=== PATIENT | male | born 1925 | race Caucasian/White ===

== ENCOUNTER 2017-08-08 | Emergency (ER) | payer OTHER ==
--- NOTE | 2017-08-08 22:24 | EDPHYS ---
Physician Documentation [facility] Name: Camilo Rocha Age: 89 yrs Sex: Male : 1925 Arrival Date: 08/08/2017 Time: 21:06 Bed 28 Private MD: ED Physician Chris Frankel HPI: 08/08 22:15 This 89 yrs old Male presents to ER via Wheelchair with complaints of CLOGGED jr8 EAR. 22:15 The patient presents with a fullness, hearing loss. The complaints affect the right jr8 ear. Onset: The symptoms/episode began/occurred gradually, 2 week(s) ago. Modifying factors: The symptoms are alleviated by nothing, the symptoms are aggravated by nothing. Associated signs and symptoms: The patient has no apparent associated signs or symptoms. Severity of symptoms: At their worst the symptoms were moderate in the emergency department the symptoms are unchanged. The patient has not experienced similar symptoms in the past. The patient has not recently seen a physician. Historical: - Allergies: 21:08 Tetanus Vaccines \T\ Toxoid; la1 - PMHx: 21:08 Atrial Fib; colon cancer; GERD; Hypertension; COPD; la1 - Immunization history:: Adult Immunizations up to date. - Social history:: Smoking status: Patient uses tobacco products, smokes one pack cigarettes per day. ROS: 22:15 Eyes: Negative for injury, pain, redness, and discharge, Neck: Negative for injury, jr8 pain, and swelling, Cardiovascular: Negative for chest pain, palpitations, and edema, Respiratory: Negative for shortness of breath, cough, wheezing, and pleuritic chest pain, Abdomen/GI: Negative for abdominal pain, nausea, vomiting, diarrhea, and constipation, Back: Negative for injury and pain, MS/Extremity: Negative for injury and deformity, Skin: Negative for injury, rash, and discoloration, Neuro: Negative for headache, weakness, numbness, tingling, and seizure. 22:15 ENT: Positive for ear pain, hearing loss, Negative for drainage from ear(s), tinnitus, nasal discharge, rhinorrhea, sinus congestion, sinus pain, sore throat, dental pain, difficulty swallowing, difficulty handling secretions, hoarseness. Exam: 22:15 Eyes: Pupils equal round and reactive to light, extra-ocular motions intact. Lids and jr8 lashes normal. Conjunctiva and sclera are non-icteric and not injected. Cornea within normal limits. Periorbital areas with no swelling, redness, or edema. Neck: Trachea midline, no thyromegaly or masses palpated, and no cervical lymphadenopathy. Supple, full range of motion without nuchal rigidity, or vertebral point tenderness. No Meningismus. Cardiovascular: Regular rate and rhythm with a normal S1 and S2. No gallops, murmurs, or rubs. Normal PMI, no JVD. No pulse deficits. Respiratory: Lungs have equal breath sounds bilaterally, clear to auscultation and percussion. No rales, rhonchi or wheezes noted. No increased work of breathing, no retractions or nasal flaring. Abdomen/GI: Soft, non-tender, with normal bowel sounds. No distension or tympany. No guarding or rebound. No evidence of tenderness throughout. Back: No spinal tenderness. No costovertebral tenderness. Full range of motion. Skin: Warm, dry with normal turgor. Normal color with no rashes, no lesions, and no evidence of cellulitis. MS/ Extremity: Pulses equal, no cyanosis. Neurovascular intact. Full, normal range of motion. Neuro: Awake and alert, GCS 15, oriented to person, place, time, and situation. Cranial nerves II-XII grossly intact. Motor strength 5/5 in all extremities. Sensory grossly intact. Cerebellar exam normal. Normal gait. 22:15 ENT: External ear(s): are unremarkable, Ear canal(s): cerumen impaction, that is severe, occluding the right ear canal, Nose: is normal, Mouth: is normal, Posterior pharynx: is normal. Vital Signs: 21:09 BP 166 / 92; Pulse 88; Resp 19; Temp 98.2(TE); Pulse Ox 96% on R/A; Weight 81.65 kg; la1 Height 5 ft. 6 in. (167.64 cm); 21:09 Body Mass Index 29.05 (81.65 kg, 167.64 cm) la1 Procedures: 22:41 Performed Cerumen Disimpaction . . jr8 MDM: 21:12 Patient medically screened. jr8 22:21 Data reviewed: vital signs, nurses notes, and as a result, I will discharge patient. jr8 Data interpreted: Pulse oximetry: on room air is 96 %. Interpretation: normal. Counseling: I had a detailed discussion with the patient and/or guardian regarding: the historical points, exam findings, and any diagnostic results supporting the discharge/admit diagnosis, the need for outpatient follow up, a family practitioner, to return to the emergency department if symptoms worsen or persist or if there are any questions or concerns that arise at home. ED course: Patients right ear disimpacted. Hearing drastically improved per patient. Has mild amount of dullness and erythema to right ear. Will put on short coarse of antibiotics to help . Administered Medications: No medications were administered Disposition: 08/09 06:21 Co-signature as Attending Physician, Chris Frankel MD. Disposition: 08/08/17 22:23 Discharged to Home. Impression: Impacted cerumen, right ear, Acute contact otitis externa. - Condition is Stable. - Discharge Instructions: Cerumen Impaction, Ear Drops, Adult. - Prescriptions for Cortisporin 3.5- 10,000-1 mg/mL-unit/mL-% Otic solution - instill 4 drop by OTIC route 3 times per day for 7 days; 1 bottle. - Medication Reconciliation Form, Thank You Letter, Antibiotic Education, Prescription Opioid Use form. - Follow up: Private Physician; When: 5 - 6 days; Reason: Recheck today's complaints, Continuance of care, Re-evaluation by your physician. - Problem is new. - Symptoms have improved. Signatures: Augusto Blanchard PA PA jr8 Mirza Galeana, RN RN la1 Chris Frankel MD MD Mira Porter RN RN rk2
--- NOTE | 2017-08-08 22:24 | ER ---
Nurse's Notes [facility] Name: Camilo Rocha Age: 89 yrs Sex: Male : 1925 Arrival Date: 08/08/2017 Time: 21:06 Bed 28 Private MD: Diagnosis: Impacted cerumen, right ear;Acute contact otitis externa Presentation: 08/08 21:08 Presenting complaint: Patient states: My right ear is clogged. Transition of care: la1 patient was not received from another setting of care. Onset of symptoms was August 08, 2017. Care prior to arrival: None. 21:08 Method Of Arrival: Wheelchair la1 21:08 Acuity: DELON 5 la1 Triage Assessment: 22:00 General: Appears in no apparent distress. well nourished, Behavior is calm, cooperative.rk2 22:00 Pain: Complains of pain in right ear. Neuro: Level of Consciousness is alert, obeys rk2 commands, Oriented to person, place, time, situation. Respiratory: Airway is patent Respiratory effort is even, unlabored, Respiratory pattern is regular, symmetrical. Derm: Skin is pink, warm \T\ dry. Historical: - Allergies: 21:08 Tetanus Vaccines \T\ Toxoid; la1 - PMHx: 21:08 Atrial Fib; colon cancer; GERD; Hypertension; COPD; la1 - Immunization history:: Adult Immunizations up to date. - Social history:: Smoking status: Patient uses tobacco products, smokes one pack cigarettes per day. Screenin:00 Abuse screen: Denies threats or abuse. rk2 22:00 Nutritional screening: No deficits noted. Tuberculosis screening: No symptoms or risk rk2 factors identified. Fall Risk Secondary diagnosis (15 points) Ambulatory Aid- Crutches/Cane/Walker (15 pts). Gait- Weak (10 pts.). Vital Signs: 21:09 BP 166 / 92; Pulse 88; Resp 19; Temp 98.2(TE); Pulse Ox 96% on R/A; Weight 81.65 kg; la1 Height 5 ft. 6 in. (167.64 cm); 21:09 Body Mass Index 29.05 (81.65 kg, 167.64 cm) la1 ED Course: 21:06 Patient arrived in ED. al2 21:08 Triage completed. la1 21:08 Arm band placed on left wrist. la1 21:12 Augusto Blanchard PA is PHCP. jr8 21:12 Chris Frankel MD is Attending Physician. jr8 22:00 Patient has correct armband on for positive identification. rk2 22:35 No provider procedures requiring assistance completed. Patient did not have IV access rk2 during this emergency room visit. Administered Medications: No medications were administered Outcome: 22:23 Discharge ordered by . jr8 22:35 Discharged to home via wheelchair. rk2 22:35 Condition: good 22:35 Discharge instructions given to patient, family, Prescriptions given X 1. 22:36 Patient left the ED. rk2 Signatures: Augusto Blanchard PA PA jr8 Mirza Galeana RN RN la1 Alondra Marin Rhonda, RN RN rk2
== END 2017-08-08 22:36 | disposition home or self-care (01) ==
CPT/HCPCS: 99282